=== PATIENT | female | born 1950 | race Caucasian/White ===

== ENCOUNTER 2017-01-12 10:57 | Emergency (ER) | payer MEDICARE, BC ==
[2017-01-12 11:12] VITALS: BP 132/82
--- NOTE | 2017-01-12 12:48 | UC ---
Complaint Female HPI - HPI Summary HPI Summary: burning with urination , nausea for 1 day no fever or back pain - History Of Current Complaint Chief Complaint: UCGU Stated Complaint: UTI COMPLAINT Time Seen by Provider: 01/12/17 12:42 Hx Obtained From: Patient ?: No Onset/Duration: Sudden Onset, Lasting Days - 1 Timing: Constant Severity Initially: Moderate Severity Currently: Moderate Character: Burning Aggravating Factor(s): Urination Alleviating Factor(s): Nothing Associated Signs And Symptoms: Positive: Nausea - Allergies/Home Medications Allergies/Adverse Reactions: Allergies Allergy/AdvReac Type Severity Reaction Status Date / Time PAIN MEDS Allergy Anaphylatic Uncoded 12/06/15 07:43 Shock Home Medications: Home Medications Aredred 1 tab DAILY 01/12/17 [History] PMH/Surg Hx/FS Hx/Imm Hx Previously Healthy: Yes - Surgical History Surgical History: Yes Surgery Procedure, Year, and Place: 1973 BILATERAL TUBAL LIGATION, [facility] [place]. 2009 BACK SURGERY, [facility] [place]. 2012 DILATION AND CURETTAGE, [facility] - Family History Family History: no reported cardiovascular issues in family lineage - Social History Occupation: Retired Lives: With Family Alcohol Use: Rare Substance Use Type: None Smoking Status (MU): Never Smoked Tobacco Household Exposure Type: Cigarettes Review of Systems Constitutional: Negative Skin: Negative Eyes: Negative ENT: Negative Respiratory: Negative Cardiovascular: Negative Gastrointestinal: Negative Genitourinary: Dysuria, Frequency Motor: Negative Neurovascular: Negative Musculoskeletal: Negative Neurological: Negative Psychological: Negative All Other Systems Reviewed And Are Negative: Yes Physical Exam Triage Information Reviewed: Yes Appearance: Well-Appearing, No Pain Distress, Well-Nourished Vital Signs: Initial Vital Signs Temp 98.1 F 01/12/17 11:10 Pulse 85 01/12/17 11:10 Resp 18 01/12/17 11:10 BP 132/82 01/12/17 11:10 Pulse Ox 96 01/12/17 11:10 Vital Signs Reviewed: Yes Eye Exam: Normal Eyes: Positive: Conjunctiva Clear ENT Exam: Normal ENT: Positive: Normal ENT inspection, Hearing grossly normal. Negative: Nasal congestion, Nasal drainage, Trismus, Muffled/hoarse voice Dental Exam: Normal Neck exam: Normal Neck: Positive: Supple, Nontender Respiratory Exam: Normal Respiratory: Positive: Chest non-tender, Lungs clear, Normal breath sounds, No respiratory distress, No accessory muscle use Cardiovascular Exam: Normal Abdominal Exam: Normal Abdomen Description: Positive: Nontender, No Organomegaly, Soft. Negative: CVA Tenderness (R), CVA Tenderness (L) Bowel Sounds: Positive: Present Musculoskeletal Exam: Normal Musculoskeletal: Positive: Strength Intact, ROM Intact, No Edema Neurological Exam: Normal Neurological: Positive: Alert, Muscle Tone Normal Psychological Exam: Normal Skin Exam: Normal Complaint Female Dx - Course Course Of Treatment: culture urine, keflex, increase fluids, follow with pcp - Differential Dx/Diagnosis Differential Diagnosis/HQI/PQRI: Renal Colic, Sexually Transmitted Disease, Urinary Tract Infection Provider Diagnoses: UTI Discharge - Discharge Plan Condition: Stable Disposition: HOME Prescriptions: Cephalexin CAP* [Keflex CAP*] 500 mg PO BID #20 cap Patient Education Materials: Urinary Tract Infection in Women (ED) Referrals: Suresh Velazquez MD [Primary Care Provider] - 2 Weeks
--- NOTE | 2017-01-13 15:44 | UC ---
Progress - Progress Note Progress Note: notify pt no UTTI stop antibiotic see primary if still symptomatic
== END 2017-01-12 12:59 | disposition home or self-care (01) ==
LOC: UCEAST 10:57
DX: R30.0 Dysuria (principal); R11.2 Nausea with vomiting, unspecified; Z77.22 Contact with and (suspected) exposure to environmental tobacco smoke (acute) (chronic)
CPT/HCPCS: 81003; 87086; 99212; G0463

== ENCOUNTER 2017-06-18 08:50 | Emergency (ER) | payer MEDICARE, BC ==
[2017-06-18 09:07] VITALS: BP 149/70
--- NOTE | 2017-06-18 10:18 | UC ---
Throat Pain/Nasal Anil HPI - HPI Summary HPI Summary: 66 y/o female presents to the urgent care c/o sinus congestion,pain, BOLDEN Sore throat since 06/10/2017. Pt reports her symptoms started with a common cold. BOLDEN is 5/10 and she is now with a yellowish nasal discharge and a dry cough too. Pt denies fever, SOB, chest pain, abdominal pain, N/V/D - History of Current Complaint Chief Complaint: UCGeneralIllness Stated Complaint: SINUS ISSUE Time Seen by Provider: 06/18/17 10:04 Hx Obtained From: Patient ?: No Onset/Duration: Gradual Onset, Lasting Weeks - 1 week, Still Present, Worse Since - 2 days Severity: Moderate Pain Intensity: 5 Pain Scale Used: 0-10 Numeric Cough: Sputum Appears - yellowish at times Associated Signs & Symptoms: Positive: Sinus Discomfort, Nasal Discharge - Epiglottits Risk Factors Epiglottis Risk Factors: Negative - Allergies/Home Medications Allergies/Adverse Reactions: Allergies Allergy/AdvReac Type Severity Reaction Status Date / Time PAIN MEDS Allergy Anaphylatic Uncoded 06/18/17 09:07 Shock PMH/Surg Hx/FS Hx/Imm Hx Previously Healthy: Yes - Pt denies PMHX - Surgical History Surgical History: Yes Surgery Procedure, Year, and Place: 1973 BILATERAL TUBAL LIGATION, [facility] – [place]. 2009 LSP BACK SURGERY, [facility] [place]. 2012 DILATION AND CURETTAGE FOR PESSARY IMPLANT, [facility]. LEFT KNEE MENISCUS REPAIR - Family History Known Family History: Positive: Diabetes Family History: no reported cardiovascular issues in family lineage - Social History Occupation: Retired Lives: With Family Alcohol Use: Rare Substance Use Type: None Smoking Status (MU): Never Smoked Tobacco Household Exposure Type: Cigarettes - Immunization History Most Recent Influenza Vaccination: 03/2017 Review of Systems Constitutional: Negative Skin: Negative Eyes: Negative ENT: Sore Throat, Nasal Discharge, Sinus Congestion, Sinus Pain/Tenderness Respiratory: Cough - productive with yellowish phlegm Cardiovascular: Negative Gastrointestinal: Negative Genitourinary: Negative Motor: Negative Neurovascular: Negative Musculoskeletal: Negative Neurological: Negative Psychological: Negative Is Patient Immunocompromised?: No All Other Systems Reviewed And Are Negative: Yes Physical Exam Triage Information Reviewed: Yes Vital Signs: Initial Vital Signs Temp 98.5 F 06/18/17 09:01 Pulse 81 06/18/17 09:01 Resp 18 06/18/17 09:01 BP 149/70 06/18/17 09:01 Pulse Ox 97 06/18/17 09:01 - Additional Comments Vitals: reviewed General: Well developed, well-nourished patient with NAD. Head and face: Normocephalic and atraumatic, Positive tenderness over the frontal and maxillary sinuses.. Eyes: PERRLA, EOMI x 2. Normal conjunctiva. No eye discharge. ENT: Ears and TM with normal limits. Nose: with moderate yellowish discharge and edematous and erythematous mucosa. Pharynx with erythema, no exudate. Neck: Supple, no JVD, no carotid bruits and no lymphadenopathy. Lungs: clear, no rales, no rhonchi, no wheezes. CVS: RRR, S1 and S2 present no murmurs or gallops appreciated. Abdomen: soft nontender with positive bowel sounds. Extremities: no edema noted. Neuro: WNL. Skin: warm and dry Throat Pain/Nasal Course/Dx - Course Course Of Treatment: 66 y/o female presents to the urgent care c/o sinus congestion,pain, BOLDEN Sore throat since 06/10/2017. Pt reports her symptoms started with a common cold. Bolden is 5/10 she is now with a yellowish nasal discharge and a dry cough too. Pt denies fever, SOB, chest pain, abdominal pain , N/V/D. Hx obtained. Pt with sinusitis on examination. Pt with 1 week of symptoms getting worse. Pt Rx Amoxicillin PO and flonase nasal spray. Discharge instructions explained to Pt. Pt' s BP elevated advised to decrease salt in diet. monitor BP and f/u with PCP. Advised to Return to the clinic or PCP if symptoms do not improve.Pt understood and agreed with plan of care. - Differential Dx/Diagnosis Differential Diagnosis/HQI/PQRI: Influenza, Laryngitis, Otitis Media, Pharyngitis, Sinusitis, Tonsillitis, URI Provider Diagnoses: 1- Acute bacterail sinusitis. 2-Uncontrolled HTN Discharge - Discharge Plan Condition: Stable Disposition: HOME Prescriptions: Amoxicillin/Clavulanate TAB* [Augmentin TAB 875*] 875 mg PO BID #20 tab Fluticasone NASAL SPRAY 50MCG* [Flonase NASAL SPRAY 50MCG*] 2 spray BOTH NARES DAILY #1 btl Patient Education Materials: Sinusitis (ED), Low Sodium Diet (ED) Referrals: Suresh Velazquez MD [Primary Care Provider] - If Needed Additional Instructions: 1- Please increase fluid intake and rest. take full course of antibiotic to avoid resistance 2-Use Flonase as directed to help drain fluid. Also buy saline drops to clear sinuses 3-Take Sudafed or Claritin PO to alleviates sinus congestion 4-Return to the clinic or PCP if symptoms do not improve for further management and treatment 5-Your BP is elevated today. please decrease salt in your diet, monitor BP and if it continues to be elevated please f/u with your PCP for further management
== END 2017-06-18 10:25 | disposition home or self-care (01) ==
LOC: UCEAST 08:50
DX: J01.90 Acute sinusitis, unspecified (principal); I10 Essential (primary) hypertension; Z77.22 Contact with and (suspected) exposure to environmental tobacco smoke (acute) (chronic)
CPT/HCPCS: 99212; G0463

== ENCOUNTER 2018-04-13 07:14 | Emergency (ER) | payer MEDICARE, BC ==
[2018-04-13 07:32] VITALS: BP 159/90
--- NOTE | 2018-04-13 07:49 | UC ---
Respiratory Complaint HPI - HPI Summary HPI Summary: 1 WEEK OF COUGH, CHEST CONGESTION, SORE THROAT, EAR PAIN, FATIGUE AND OVERALL MALAISE. DENIES FEVER, NAUSEA/VOMITING. ALSO COMPLAINS OF ABOUT 2 DAYS OF URINARY FREQUENCY, URGENCY AND DYSURIA. AGAIN NO FEVER. - History of Current Complaint Stated Complaint: COUGH EAR PAIN ACHES ALL OVER Time Seen by Provider: 04/13/18 07:23 Hx Obtained From: Patient Onset/Duration: Gradual Onset, Lasting Days, Still Present Timing: Constant Severity Initially: Moderate Severity Currently: Moderate Pain Intensity: 2 Pain Scale Used: 0-10 Numeric Character: Cough: Nonproductive Aggravating Factors: Nothing Alleviating Factors: Nothing Associated Signs And Symptoms: Positive: Dyspnea, URI, Nasal Congestion. Negative: Fever - Allergies/Home Medications Allergies/Adverse Reactions: Allergies Allergy/AdvReac Type Severity Reaction Status Date / Time PAIN MEDS Allergy Anaphylatic Uncoded 04/13/18 07:32 Shock PMH/Surg Hx/FS Hx/Imm Hx - Additional Past Medical History Additional PMH: CHRONIC BACK PAIN - Surgical History Surgical History: Yes Surgery Procedure, Year, and Place: 1973 BILATERAL TUBAL LIGATION, [facility] [place]. 2009 LSP BACK SURGERY, [facility] [place]. 2012 DILATION AND CURETTAGE FOR PESSARY IMPLANT, [facility]. LEFT KNEE MENISCUS REPAIR - Family History Known Family History: Positive: Hypertension, Diabetes, Other - Negative FMHx of breast cancer - Social History Alcohol Use: Rare Substance Use Type: None Smoking Status (MU): Never Smoked Tobacco Household Exposure Type: Cigarettes - Immunization History Most Recent Influenza Vaccination: 03/2017 Review of Systems Constitutional: Fatigue ENT: Sore Throat, Ear Ache, Nasal Discharge Respiratory: Shortness Of Breath, Cough Cardiovascular: Negative Gastrointestinal: Negative Genitourinary: Dysuria, Frequency, Urgency All Other Systems Reviewed And Are Negative: Yes Physical Exam Triage Information Reviewed: Yes Appearance: No Pain Distress, Well-Nourished, Ill-Appearing - APPEARS FATIGUED Vital Signs: Initial Vital Signs Temp 95.7 F 04/13/18 07:29 Pulse 79 04/13/18 07:29 Resp 20 04/13/18 07:29 BP 159/90 04/13/18 07:29 Pulse Ox 97 04/13/18 07:29 Laboratory Tests 04/13/18 07:35 POC Urine Color Yellow POC Urine Clarity Clear POC Urine pH 6.5 POC Ur Specif [place] <= 1.005 L POC Urine Protein Negative POC Ur Glucose (UA) Negative POC Urine Ketones Negative POC Urine Blood Trace-intact A POC Urine Nitrite Negative POC Urine Bilirubin Negative POC Urine Urobilinogen 0.2 POC U Leukocyte Esteras 1+ A Vital Signs Reviewed: Yes Eyes: Positive: Conjunctiva Clear ENT: Positive: Hearing grossly normal, Pharynx normal, TMs normal Neck: Positive: Supple, Nontender, No Lymphadenopathy Respiratory Exam: Normal Cardiovascular Exam: Normal Abdomen Description: Positive: Nontender, Soft. Negative: CVA Tenderness (R), CVA Tenderness (L), Distended, Guarding Musculoskeletal: Positive: No Edema Neurological: Positive: Alert Psychological: Positive: Age Appropriate Behavior Skin: Negative: rashes UC Diagnostic Evaluation - Laboratory O2 Sat by Pulse Oximetry: 97 Respiratory Course/Dx - Differential Dx/Diagnosis Provider Diagnoses: 1. ACUTE BRONCHITIS. 2. UTI Discharge - Sign-Out/Discharge Documenting (check all that apply): Patient Departure All imaging exams completed and their final reports reviewed: No Studies - Discharge Plan Condition: Stable Disposition: HOME Prescriptions: Cephalexin CAP* [Keflex 500 CAP*] 1,000 mg PO BID #28 cap Patient Education Materials: Urinary Tract Infection in Women (ED), Acute Bronchitis (ED) Referrals: Suresh Velazquez MD [Primary Care Provider] - If Needed Additional Instructions: YOUR RESPIRATORY SYMPTOMS MAY BE VIRALLY MEDIATED BUT GIVEN THE LENGTH OF TIME YOU HAVE BEEN ILL WE WILL COVER YOU WITH ANTIBIOTICS. IF YOU START THE MEDICINE BE SURE TO TAKE IT FOR THE FULL COURSE. REST, HYDRATE, OTC MEDS NEEDED. SEEK FOLLOW-UP WITH YOUR PCP IF YOU ARE NOT IMPROVING OVER THE NEXT 1-2 WEEKS. THE ANTIBIOTIC SHOULD COVER BOTH YOUR RESPIRATORY SYMPTOMS AND YOUR URINARY SYMPTOMS. WE WILL SEND YOUR URINE FOR CULTURE AND CALL YOU IF YOUR MEDICATION NEEDS TO BE CHANGED. - Billing Disposition and Condition Condition: STABLE Disposition: Home
--- NOTE | 2018-04-15 19:55 | UC ---
- Progress Note Progress Note: + Ecoli Pt on keflex no change + sensitive Ljj 04/15/18 Discharge - Sign-Out/Discharge Documenting (check all that apply): Post-Discharge Follow Up All imaging exams completed and their final reports reviewed: No Studies - Discharge Plan Condition: Stable Disposition: HOME Prescriptions: Cephalexin CAP* [Keflex 500 CAP*] 1,000 mg PO BID #28 cap Patient Education Materials: Urinary Tract Infection in Women (ED), Acute Bronchitis (ED) Referrals: Suresh Velazquez MD [Primary Care Provider] - If Needed Additional Instructions: YOUR RESPIRATORY SYMPTOMS MAY BE VIRALLY MEDIATED BUT GIVEN THE LENGTH OF TIME YOU HAVE BEEN ILL WE WILL COVER YOU WITH ANTIBIOTICS. IF YOU START THE MEDICINE BE SURE TO TAKE IT FOR THE FULL COURSE. REST, HYDRATE, OTC MEDS NEEDED. SEEK FOLLOW-UP WITH YOUR PCP IF YOU ARE NOT IMPROVING OVER THE NEXT 1-2 WEEKS. THE ANTIBIOTIC SHOULD COVER BOTH YOUR RESPIRATORY SYMPTOMS AND YOUR URINARY SYMPTOMS. WE WILL SEND YOUR URINE FOR CULTURE AND CALL YOU IF YOUR MEDICATION NEEDS TO BE CHANGED. - Billing Disposition and Condition Condition: STABLE Disposition: Home
== END 2018-04-13 07:56 | disposition home or self-care (01) ==
LOC: UCEAST 07:14
DX: J20.9 Acute bronchitis, unspecified (principal); N39.0 Urinary tract infection, site not specified; Z88.5 Allergy status to narcotic agent
CPT/HCPCS: 81003; 87077; 87086; 87186; 99212; G0463

== ENCOUNTER 2018-09-13 13:57 | Inpatient (IN) | payer MEDICARE, BC ==
[2018-09-13] MEDS ORDERED: Ondansetron INJ* 2 MG/ML VIAL IV ONE (15:02)
[2018-09-13] MEDS ORDERED: NS 0.9% 1000 ML** 1,000 ML IV ONE ×2 (15:02→17:11)
[2018-09-13] MEDS ORDERED: Aspirin 81 mg CHEW TAB* 81 MG TAB.CHEW PO ONE (15:02)
[2018-09-13 15:55] LABS: ABS Basophils 0.1 10^3/ul (0-0.2); ABS Eosinophils 0.1 10^3/ul (0-0.6); ABS Lymphocytes 1.5 10^3/ul (1.0-4.8); ABS Monocytes 0.8 10^3/ul (0-0.8); ABS Neutrophils 6.2 10^3/ul (1.5-7.7); ABS Nucleated RBC 0 10^3/ul; Eosinophil % 0.7 %; Hematocrit 37 % (35-47); Hemoglobin 12.4 g/dl (12.0-16.0); Lymphocyte % 17.1 %; Mean Corpuscular HGB Conc 34 g/dl (31-36); Mean Corpuscular Hemoglobin 32 pg (27-31); Mean Corpuscular Volume 96 fL (80-97); Mean Platelet Volume 6.9 fL (7.4-10.4); Nucleated Red Blood Cells % 0; Platelet Count 229 10^3/ul (150-450); Red Blood Count 3.87 10^6/ul (4.00-5.40); Red Cell Distribution Width 13 % (10.5-15); White Blood Count 8.7 10^3/ul (3.5-10.8)
[2018-09-13 16:07] LABS: Activated Partial Thrombo Time 29.5 seconds (26.0-36.3)
[2018-09-13 16:42] LABS: Albumin 3.9 g/dL (3.2-5.2); Albumin/Globulin Ratio 1.7 (1-3); BUN/Creatinine Ratio 24.2 (8-20); Calcium 8.8 mg/dL (8.6-10.3); EGFR African American 107.8 (>60); EGFR Non-African American 89.1 (>60); Globulin 2.3 g/dL (2-4); Magnesium 2.1 mg/dL (1.9-2.7); Potassium 3.8 mmol/L (3.5-5.0); Total Bilirubin 0.3 mg/dL (0.2-1.0); Total Protein 6.2 g/dL (6.4-8.9)
[2018-09-13] MEDS ORDERED: Iohexol 300* (CONTRAST) 10 ML SDV IV ONE (17:35)
[2018-09-13] MEDS ORDERED: Ondansetron INJ* 2 MG/ML VIAL IV PRN (18:51)
[2018-09-13] MEDS ORDERED: NS 0.9% 1000 ML** 1,000 ML IV SCH (19:15)
--- NOTE | 2018-09-13 22:39 | HP ---
CC: Dr. Velazquez * ADMISSION HISTORY AND PHYSICAL: DATE OF ADMISSION: 09/13/18 PRIMARY CARE PROVIDER: Dr. Velazquez. MY ATTENDING WHILE IN THE HOSPITAL: Dr. Vania Worley.* (DICTATED BY OLVIN MCMANUS) CHIEF COMPLAINT: Abdominal pain x6 hours. HISTORY OF PRESENT ILLNESS: Ms. Grimm is a 68-year-old female with no significant past medical history, who presents to the emergency department after this morning she fell on the ice, took ibuprofen 400 mg, and then 10 minutes later, began to have sudden onset of severe epigastric abdominal pain radiating to her chest and down the center of her abdomen, no radiation to her back, with severe nausea without vomiting and 1 syncopal episode. The patient has never had any episodes like this before. The patient denies any recent illness. The patient takes no other medications. The patient had chills associated with this, but denies any fevers. The patient has been in her normal state of health except for the aforementioned fall. The patient states that the pain since then has subsided and then come back in paroxysms, which can be severe and associated with nausea. The patient states that the aspirin she received in the emergency department helped and that the Zofran she received helped significantly. The patient does not drink alcohol. The patient has no new meds. The patient never had any problems with her gallbladder before. The patient states that her pain is currently a 3 to 4. The patient denies chest pain, shortness of breath, dysuria, abdominal pain, diarrhea, or other symptoms. The patient's lipase was over 5000. Due to concern for pancreatitis, we are asked to evaluate the patient for admission to the hospital. PAST MEDICAL HISTORY: Macular degeneration. PAST SURGICAL HISTORY: Back surgery. MEDICATIONS: Ibuprofen as needed. ALLERGIES: OPIATE PAIN MEDICATIONS. FAMILY HISTORY: The patient's mother of complications of diabetes. The patient's father is still alive and has dementia. The patient has a sister with hypertension and sleep apnea. The patient has a brother with diabetes and a brother, who of pancreatic cancer. SOCIAL HISTORY: The patient denies ever smoking, but has exposure to second- hand smoke. The patient drinks approximately 2 beers a year. The patient denies illicit drug use. The patient works as a book or script editor. She is and has 2 children. Surrogate decision maker will be her , Leo Grimm , primarily. REVIEW OF SYSTEMS: A 14-point review of systems was reviewed and is negative other than above in the HPI. PHYSICAL EXAMINATION GENERAL: The patient is a 68-year-old female, who appears stated age and is sitting comfortably in bed, in no acute distress. VITAL SIGNS: At the time of evaluation, temperature 98.9, pulse rate 58, respiratory rate 21, oxygen saturation 97% on room air, blood pressure 135/82. HEENT: Head: Normocephalic, atraumatic. Sclerae anicteric. No conjunctival injection. Nasal mucosa moist. Oral mucosa moist. No pharyngeal erythema, discharge, or exudate. NECK: Supple, nontender. No lymphadenopathy. No carotid bruits auscultated. No JVD. RESPIRATORY: Breath sounds bilaterally. No wheezes, rales, or rhonchi. Good air exchange bilaterally. CARDIAC: Regular rate and rhythm. No clicks, murmurs, gallops, or rubs. Pulse 2+ in dorsalis pedis, posterior tibial, and radial areas. ABDOMEN: Soft, tender to palpation in the epigastric area without rebound or guarding. No hepatosplenomegaly. Negative Townsend's sign. No abdominal bruits auscultated. GENITOURINARY: No suprapubic or CVA tenderness. NEUROLOGIC: Cranial nerves II through XII intact. No focal deficits. Alert and oriented x3. PSYCHIATRIC: Pleasant and cooperative. SKIN: Clean, dry, intact. No rash. DIAGNOSTIC STUDIES/LAB DATA: White blood cell count 8.7, hemoglobin 12.4, platelet count 229. INR 1.0, aPTT 29.5. Sodium 142, potassium 3.8, chloride 110, carbon dioxide 27, anion gap 5, BUN 16, creatinine 0.66, glucose 92, lactic acid 0.6, calcium 8.8, magnesium 2.1. Bilirubin 0.3, AST 17, ALT 10, alkaline phosphatase 69. Troponin-I 0.00 x2. BNP 21. Protein 6.2. Lipase 2291. Studies: Abdomen and pelvis CT read as cholelithiasis at the gallbladder fundus versus mass lesion in this region. There is a mild gallbladder wall thickening, acute gallbladder pathology could be better assessed with right upper quadrant ultrasound or nuclear medicine hepatobiliary scan, no acute CT pathology. Chest x-ray read as no active cardiopulmonary disease. Electrocardiogram shows normal sinus rhythm, normal axis, right bundle branch block pattern, no ST-segment elevation or depression. No blocks or hypertrophy. ASSESSMENT AND PLAN: Ms. Grimm is a 68-year-old female with no significant past medical history, who presents to the emergency department with sudden- onset severe abdominal pain and was found to have an elevated lipase and possible cholelithiasis with signs of acute cholecystitis. The patient will be admitted to the hospital for gallbladder pancreatitis, surgical consult possible , and conservative measures for her pancreatitis. Pancreatitis, possible cholecystitis. The patient has a sign of gallbladder pathology. Right upper quadrant ultrasound is pending. This is the most likely cause for the patient's pancreatitis. Other causes could be rare drug effect from NSAIDs; however, given patient's age, gender, and presentation, this is unlikely to be the case. The patient is at this time very hungry and has minor abdominal pain. The patient will be given a clear liquid diet; Tylenol for pain control, she cannot tolerate opiate pain medications; fluids at 75 mL an hour. The patient is normotensive, non-tachycardic. The patient will be seen in consultation by Dr. Corona Gonzalez of Surgery, who this case has been discussed with and will assess the patient for the time being of possible cholecystectomy. DVT prophylaxis. The patient will have heparin subcu. FEN. The patient will have a clear liquid diet and fluids as above. Disposition. The patient admitted to observation in the hospital. TIME SPENT: Approximately 60 minutes spent on the admission of this patient, 30 of which was spent [id number] with the patient obtaining history and physical and discussing treatment plan. Plan was discussed with my attending, Dr. Vania Worley; she is in agreement. OLVIN MCMANUS [id number]/CPS #: [id number] [place]
[2018-09-13] MEDS: Acetaminophen TAB* 325 MG PO PRN (23:41)
--- NOTE | 2018-09-14 02:59 | ED ---
Abdominal Pain/Female - HPI Summary HPI Summary: Patient complains of epigastric pain, left side chest pain, SOB, nausea, diaphoresis, diarrhea 1 starting today at 4:15. Also complains of fall this a.m. with no subsequent injuries. Denies fever, cough, sore throat, V/D, change in urine, vaginal discharge/bleeding/pain. Denies recent CP or SOB with exertion. CP currently rated 1/10, abdominal pain graded 4/10. Medical history is none. Surgical abdominal surgical history is none. Denies smoking, EtOH and recreational drug use. - History of Current Complaint Chief Complaint: EDChestPainROMI Stated Complaint: ABD PAIN PER EMS Time Seen by Provider: 09/13/18 14:43 Hx Obtained From: Patient Onset/Duration: Sudden Onset Timing: Constant Severity Initially: Moderate Severity Currently: Moderate Pain Intensity: 2 Pain Scale Used: 0-10 Numeric Location: Discrete At: RUQ, Epigastric Radiates: Yes Radiates to: Chest Character: Sharp, Burning Aggravating Factor(s): Food Alleviating Factor(s): Nothing Associated Signs and Symptoms: Positive: Diaphoresis, Chest Pain, Decreased Appetite, Nausea Allergies/Adverse Reactions: Allergies Allergy/AdvReac Type Severity Reaction Status Date / Time PAIN MEDS Allergy Anaphylatic Uncoded 04/13/18 07:32 Shock Home Medications: Home Medications Multivitamins/Minerals TAB* [Theragran/minerals TAB*] 1 tab PO DAILY 09/13/18 [ History Confirmed 09/13/18] PMH/Surg Hx/FS Hx/Imm Hx Endocrine/Hematology History: Denies: Hx Diabetes, Hx Thyroid Disease Cardiovascular History: Denies: Hx Hypertension, Hx Pacemaker/ICD Respiratory History: Reports: Hx Pneumonia Denies: Hx Asthma, Hx Chronic Obstructive Pulmonary Disease (COPD) GI History: Denies: Hx Ulcer History: Denies: Hx Renal Disease Musculoskeletal History: Reports: Hx Arthritis - BACK, AND BILATERAL HIPS Denies: Hx Osteoporosis Sensory History: Reports: Hx Contacts or Glasses, Hx Macular Degeneration Denies: Hx Hearing Aid Opthamlomology History: Reports: Hx Contacts or Glasses, Hx Macular Degeneration Neurological History: Reports: Hx Headaches - several last week Denies: Hx Migraine Psychiatric History: Denies: Hx Panic Disorder - Cancer History Hx Chemotherapy: No Hx Radiation Therapy: No - Surgical History Surgery Procedure, Year, and Place: 1973 BILATERAL TUBAL LIGATION, [facility]. 2009 [place] [facility] [place]IL[place] AND CURETTAGE FOR PESSARY IMPLANT, [facility]. LEFT KNEE MENISCUS REPAIR Hx Anesthesia Reactions: No Infectious Disease History: No Infectious Disease History: Denies: Hx Clostridium Difficile, Hx Hepatitis, Hx Human Immunodeficiency Virus (HIV), Hx of Known/Suspected MRSA, Hx Shingles, Hx Tuberculosis, Hx Known/ Suspected VRE, Hx Known/Suspected VRSA, History Other Infectious Disease, Traveled Outside the [place] in Last 30 Days - Family History Known Family History: Positive: Hypertension, Diabetes, Other - Negative FMHx of breast cancer - Social History Alcohol Use: Rare Hx Substance Use: No Substance Use Type: Reports: None Hx Tobacco Use: No Smoking Status (MU): Never Smoked Tobacco Review of Systems Constitutional: Negative Eyes: Negative ENT: Negative Positive: Chest Pain Positive: Shortness Of Breath Positive: Abdominal Pain, Nausea Genitourinary: Negative Musculoskeletal: Negative Skin: Negative Neurological: Negative Psychological: Normal All Other Systems Reviewed And Are Negative: Yes Physical Exam - Summary Physical Exam Summary: Pain to palpation right upper quadrant and epigastrium. Abdominal exam otherwise unremarkable. Lung sounds clear to auscultation bilaterally. RRR. No CVA tenderness bilaterally. No peripheral edema bilaterally. Triage Information Reviewed: Yes Vital Signs On Initial Exam: Initial Vitals Temp Pulse Resp BP Pulse Ox 98.9 F 84 19 122/76 95 09/13/18 14:09 09/13/18 14:09 09/13/18 14:09 09/13/18 14:09 09/13/18 14:09 Vital Signs Reviewed: Yes Appearance: Positive: Well-Appearing Skin: Positive: Warm Head/Face: Positive: Normal Head/Face Inspection Eyes: Positive: Normal Neck: Positive: Supple Respiratory/Lung Sounds: Positive: Clear to Auscultation Cardiovascular: Positive: Normal Abdomen Description: Positive: Other: Musculoskeletal: Positive: Normal Neurological: Positive: Normal Psychiatric: Positive: Normal AVPU Assessment: Alert - Gilbert Coma Scale Best Eye Response: 4 - Spontaneous Best Motor Response: 6 - Obeys Commands Best Verbal Response: 5 - Oriented Coma Scale Total: 15 Diagnostics - Vital Signs Vital Signs Temp Pulse Resp BP Pulse Ox 09/13/18 18:37 68 21 135/82 97 09/13/18 18:07 69 20 151/80 95 09/13/18 18:06 73 13 97 09/13/18 17:07 68 22 151/83 96 09/13/18 17:00 73 18 95 09/13/18 16:37 78 15 132/80 93 09/13/18 16:09 75 14 157/82 96 09/13/18 16:00 80 16 96 09/13/18 15:53 71 21 130/82 96 09/13/18 15:07 81 23 144/81 98 09/13/18 15:00 87 99 09/13/18 14:37 87 140/88 98 09/13/18 14:35 80 96 09/13/18 14:09 98.9 F 84 19 122/76 95 - Laboratory Lab Results: Lab Results 09/13/18 09/13/18 09/13/18 Range/Units 15:32 15:32 15:32 WBC 8.7 (3.5-10.8) 10^3/ul RBC 3.87 L (4.00-5.40) 10^6/ul Hgb 12.4 (12.0-16.0) g/dl Hct 37 (35-47) % MCV 96 (80-97) fL MCH 32 H (27-31) pg MCHC 34 (31-36) g/dl RDW 13 (10.5-15) % Plt Count 229 (150-450) 10^3/ul MPV 6.9 L (7.4-10.4) fL Neut % (Auto) 72.1 % Lymph % (Auto) 17.1 % [place] % (Auto) 9.1 % Eos % (Auto) 0.7 % Baso % (Auto) 1.0 % Absolute Neuts (auto) 6.2 (1.5-7.7) 10^3/ul Absolute Lymphs (auto) 1.5 (1.0-4.8) 10^3/ul Absolute Monos (auto) 0.8 (0-0.8) 10^3/ul Absolute Eos (auto) 0.1 (0-0.6) 10^3/ul Absolute Basos (auto) 0.1 (0-0.2) 10^3/ul Absolute Nucleated RBC 0 10^3/ul Nucleated RBC % 0 INR (Anticoag Therapy) 1.00 (0.77-1.02) APTT 29.5 (26.0-36.3) seconds Sodium 142 (135-145) mmol/L Potassium 3.8 (3.5-5.0) mmol/L Chloride 110 (101-111) mmol/L Carbon Dioxide 27 (22-32) mmol/L Anion Gap 5 (2-11) mmol/L BUN 16 (6-24) mg/dL Creatinine 0.66 (0.51-0.95) mg/dL Est GFR ( Amer) 107.8 (>60) Est GFR (Non-Af Amer) 89.1 (>60) BUN/Creatinine Ratio 24.2 H (8-20) Glucose 92 (70-100) mg/dL Lactic Acid (0.5-2.0) mmol/L Calcium 8.8 (8.6-10.3) mg/dL Magnesium 2.1 (1.9-2.7) mg/dL Total Bilirubin 0.30 (0.2-1.0) mg/dL AST 17 (13-39) U/L ALT 10 (7-52) U/L Alkaline Phosphatase 59 (34-104) U/L Troponin I 0.00 (<0.04) ng/mL B-Natriuretic Peptide (<=100) pg/mL Total Protein 6.2 L (6.4-8.9) g/dL Albumin 3.9 (3.2-5.2) g/dL Globulin 2.3 (2-4) g/dL Albumin/Globulin Ratio 1.7 (1-3) Lipase (11.0-82.0) U/L 09/13/18 09/13/18 09/13/18 Range/Units 15:32 15:32 15:32 WBC (3.5-10.8) 10^3/ul RBC (4.00-5.40) 10^6/ul Hgb (12.0-16.0) g/dl Hct (35-47) % MCV (80-97) fL MCH (27-31) pg MCHC (31-36) g/dl RDW (10.5-15) % Plt Count (150-450) 10^3/ul MPV (7.4-10.4) fL Neut % (Auto) % Lymph % (Auto) % [place] % (Auto) % Eos % (Auto) % Baso % (Auto) % Absolute Neuts (auto) (1.5-7.7) 10^3/ul Absolute Lymphs (auto) (1.0-4.8) 10^3/ul Absolute Monos (auto) (0-0.8) 10^3/ul Absolute Eos (auto) (0-0.6) 10^3/ul Absolute Basos (auto) (0-0.2) 10^3/ul Absolute Nucleated RBC 10^3/ul Nucleated RBC % INR (Anticoag Therapy) (0.77-1.02) APTT (26.0-36.3) seconds Sodium (135-145) mmol/L Potassium (3.5-5.0) mmol/L Chloride (101-111) mmol/L Carbon Dioxide (22-32) mmol/L Anion Gap (2-11) mmol/L BUN (6-24) mg/dL Creatinine (0.51-0.95) mg/dL Est GFR ( Amer) (>60) Est GFR (Non-Af Amer) (>60) BUN/Creatinine Ratio (8-20) Glucose (70-100) mg/dL Lactic Acid 0.6 (0.5-2.0) mmol/L Calcium (8.6-10.3) mg/dL Magnesium (1.9-2.7) mg/dL Total Bilirubin (0.2-1.0) mg/dL AST (13-39) U/L ALT (7-52) U/L Alkaline Phosphatase (34-104) U/L Troponin I (<0.04) ng/mL B-Natriuretic Peptide 21 (<=100) pg/mL Total Protein (6.4-8.9) g/dL Albumin (3.2-5.2) g/dL Globulin (2-4) g/dL Albumin/Globulin Ratio (1-3) Lipase 5291 H (11.0-82.0) U/L 09/13/18 Range/Units 17:39 WBC (3.5-10.8) 10^3/ul RBC (4.00-5.40) 10^6/ul Hgb (12.0-16.0) g/dl Hct (35-47) % MCV (80-97) fL MCH (27-31) pg MCHC (31-36) g/dl RDW (10.5-15) % Plt Count (150-450) 10^3/ul MPV (7.4-10.4) fL Neut % (Auto) % Lymph % (Auto) % [place] % (Auto) % Eos % (Auto) % Baso % (Auto) % Absolute Neuts (auto) (1.5-7.7) 10^3/ul Absolute Lymphs (auto) (1.0-4.8) 10^3/ul Absolute Monos (auto) (0-0.8) 10^3/ul Absolute Eos (auto) (0-0.6) 10^3/ul Absolute Basos (auto) (0-0.2) 10^3/ul Absolute Nucleated RBC 10^3/ul Nucleated RBC % INR (Anticoag Therapy) (0.77-1.02) APTT (26.0-36.3) seconds Sodium (135-145) mmol/L Potassium (3.5-5.0) mmol/L Chloride (101-111) mmol/L Carbon Dioxide (22-32) mmol/L Anion Gap (2-11) mmol/L BUN (6-24) mg/dL Creatinine (0.51-0.95) mg/dL Est GFR ( Amer) (>60) Est GFR (Non-Af Amer) (>60) BUN/Creatinine Ratio (8-20) Glucose (70-100) mg/dL Lactic Acid (0.5-2.0) mmol/L Calcium (8.6-10.3) mg/dL Magnesium (1.9-2.7) mg/dL Total Bilirubin (0.2-1.0) mg/dL AST (13-39) U/L ALT (7-52) U/L Alkaline Phosphatase (34-104) U/L Troponin I 0.00 (<0.04) ng/mL B-Natriuretic Peptide (<=100) pg/mL Total Protein (6.4-8.9) g/dL Albumin (3.2-5.2) g/dL Globulin (2-4) g/dL Albumin/Globulin Ratio (1-3) Lipase (11.0-82.0) U/L Result Diagrams: 09/13/18 15:32 09/13/18 15:32 Lab Statement: Any lab studies that have been ordered have been reviewed, and results considered in the medical decision making process. Abdominal Pain Fem Course/Dx - Course Course Of Treatment: Patient complains of epigastric pain, left side chest pain , SOB, nausea, diaphoresis, diarrhea 1 starting today at 4:15. Also complains of fall this a.m. with no subsequent injuries. Denies fever, cough, sore throat, V/D, change in urine, vaginal discharge/bleeding/pain. Denies recent CP or SOB with exertion. CP currently rated 1/10, abdominal pain graded 4/10. Medical history is none. Surgical abdominal surgical history is none. Denies smoking, EtOH and recreational drug use. Physical exam:Pain to palpation right upper quadrant and epigastrium. Abdominal exam otherwise unremarkable. Lung sounds clear to auscultation bilaterally. RRR. No CVA tenderness bilaterally. No peripheral edema bilaterally. Vital signs within normal limits. Lipase 5291. Labs otherwise unremarkable. Chest x-ray negative for acute process. CT abdomen and pelvis with contrast suggests possible coronary cystitis. Ultrasound of gallbladder positive for cholelithiasis and sludge. Negative for cholecystitis. EKG sinus rhythm. Troponin is negative. Diagnosis acute pancreatitis. Patient admitted to hospitalist. - Diagnoses Provider Diagnoses: Acute pancreatitis Discharge - Sign-Out/Discharge Documenting (check all that apply): Patient Departure - Discharge Plan Condition: Improved Disposition: ADMITTED TO [facility] - Billing Disposition and Condition Condition: IMPROVED Disposition: Admitted to [facility]
[2018-09-14] MEDS ORDERED: NS 0.9% 500 ML* 500 ML IV ONE (03:56)
[2018-09-14] MEDS ORDERED: NS 0.9% 1000 ML** 1,000 ML IV SCH (04:00)
[2018-09-14] MEDS: Acetaminophen TAB* 325 MG PO PRN ×2 (05:43→11:48)
[2018-09-14 07:54] LABS: ABS Basophils 0.1 10^3/ul (0-0.2); ABS Eosinophils 0.2 10^3/ul (0-0.6); ABS Lymphocytes 2.1 10^3/ul (1.0-4.8); ABS Monocytes 0.4 10^3/ul (0-0.8); ABS Neutrophils 1.8 10^3/ul (1.5-7.7); ABS Nucleated RBC 0 10^3/ul; Eosinophil % 3.6 %; Hematocrit 34 % (35-47); Hemoglobin 11.6 g/dl (12.0-16.0); Mean Corpuscular HGB Conc 34 g/dl (31-36); Mean Corpuscular Hemoglobin 33 pg (27-31); Mean Corpuscular Volume 96 fL (80-97); Mean Platelet Volume 6.9 fL (7.4-10.4); Nucleated Red Blood Cells % 0.1; Platelet Count 207 10^3/ul (150-450); Red Blood Count 3.58 10^6/ul (4.00-5.40); Red Cell Distribution Width 13 % (10.5-15); White Blood Count 4.6 10^3/ul (3.5-10.8)
[2018-09-14 08:12] LABS: Albumin 3.3 g/dL (3.2-5.2); Albumin/Globulin Ratio 1.6 (1-3); BUN/Creatinine Ratio 16.1 (8-20); EGFR African American 130.3 (>60); EGFR Non-African American 107.7 (>60); Globulin 2.1 g/dL (2-4); Potassium 3.8 mmol/L (3.5-5.0); Total Bilirubin 0.5 mg/dL (0.2-1.0); Total Protein 5.4 g/dL (6.4-8.9)
[2018-09-14] MEDS: Multivitamins/Minerals TAB PO SCH (10:00)
--- NOTE | 2018-09-14 17:53 | PN ---
Subjective Date of Service: 09/14/18 Interval History: HOSPITALIST PROGRESS NOTE Patient seen and examined at bedside. Care reviewed and d/w Alis MARIE. She feels much better today, wants to eat solid food. Family History: Unchanged from Admission Social History: Unchanged from Admission Past Medical History: Unchanged from Admission Objective Active Medications: Acetaminophen (Tylenol Tab*) 650 mg PO Q6H PRN PRN Reason: FEVER/PAIN Last Admin: 09/14/18 11:48 Dose: 650 mg Multivitamins/Minerals (Theragran/Minerals Tab*) 1 tab PO DAILY JAYESH Last Admin: 09/14/18 10:00 Dose: 1 tab Ondansetron HCl (Zofran Inj*) 4 mg IV Q6H PRN PRN Reason: NAUSEA Vital Signs - 8 hr 09/14/18 09/14/18 11:28 15:50 Temperature 98.2 F 97.5 F Pulse Rate 65 58 Respiratory 17 16 Rate Blood Pressure 134/74 119/50 (mmHg) O2 Sat by Pulse 99 100 Oximetry Oxygen Devices in Use Now: None Appearance: pleasant lady sitting up in bed in NAD. Eyes: No Scleral Icterus Ears/Nose/Mouth/Throat: Mucous Membranes Moist Neck: Trachea Midline Respiratory: Symmetrical Chest Expansion and Respiratory Effort, Clear to Auscultation Cardiovascular: RRR - Normal S1 and S2 Abdominal: NL Sounds; No Tenderness; No Distention Extremities: No Edema Neurological: Alert and Oriented x 3, NL Muscle Strength and Tone Result Diagrams: 09/14/18 07:28 09/14/18 07:28 Assess/Plan/Problems-Billing Assessment: Mrs Grimm is a 68yo F with PMH of macular degeneration who presented to ED with c/o abdominal pain, found to have gallstone pancreatitis. - Patient Problems (1) Gallstone pancreatitis Comment: - US and CT reviewed. - Symptoms much improved - will advance diet. - Surgery input appreciated - tentative plan for lap garrett 09/16/18 (2) DVT prophylaxis Comment: - SQ heparin (3) Full code status Status and Disposition: Change to inpatient.
--- NOTE | 2018-09-14 21:23 | CONS ---
CC: Dr. Suresh Velazquez * CONSULTATION NOTE: DATE OF CONSULT: 09/14/18 ATTENDING SURGEON: Dr. Leo Reynaga. CHIEF COMPLAINT: Abdominal pain. HISTORY OF PRESENT ILLNESS: This is a 68-year-old generally healthy female who yesterday morning began to have sudden onset of severe epigastric pain. This radiated to her chest and down to the center of the abdomen as well as to both upper quadrants right greater than left and was associated with nausea but no vomiting. She also describes some shortness of breath. At one point, she had a brief syncopal episode, which was witnessed by her . She apparently was at the side of the bed at that time and sustained no additional injury. She does reports some diarrhea during the episode. She reports a peak of pain of 10/10. At the present time, she states that her pain is 2/10, but that she is both nauseated and would like to eat. She reports some lightheadedness and a headache. She has not had any prior similar symptoms. She has not had any prior abdominal surgeries. Family history is positive for gallbladder disease in her mother. Her brother is recently from pancreatic cancer. PAST MEDICAL HISTORY: Please see the dictated history and physical. She has undergone L5-S1 diskectomy in 2009 and left knee arthroscopy in 2016. CURRENT MEDICATIONS: 1. Multivitamin. 2. Ibuprofen p.r.n. DRUG ALLERGIES: She states that PAIN MEDICATIONS in particular HYDROCODONE and OXYCODONE have caused both WET TRIMMER side effects and difficulty breathing (she states that she does tolerate low doses of Tylenol with codeine). FAMILY HISTORY: Negative for anesthesia problems, bleeding, or clotting disorder. SOCIAL HISTORY: Please see history and physical. PHYSICAL EXAM: Height 5 feet 6 inches, weight 140 pounds, temperature 98.5, blood pressure 107/61, pulse 57, respirations 17, room air saturation 97%. General: Well-nourished, well-developed female in no acute distress. She appears comfortable. Skin: Warm and dry. No suspicious rashes or lesions noted. HEENT: Unremarkable. No scleral icterus or conjunctival pallor. Neck: No masses, thyromegaly, lymphadenopathy. Heart: Regular rate and rhythm. No murmur noted. Lungs: Clear to auscultation. No wheezes. Breasts: Not examined. Abdomen: Minimally distended. Bowel sounds are present. Soft with tenderness primarily in the epigastric area and slightly in the right upper quadrant but with a negative Townsend sign. There is no rebound or guarding. There are no masses palpable or organomegaly. Genitalia and rectal not done. Back: No spinous process or CVA tenderness. Extremities: No edema. Neurological: Grossly intact. DIAGNOSTIC STUDIES/LAB DATA: White blood cell count on admission 8.7, down to 4.6 this morning; hemoglobin 12.4, down to 11.6. Chloride is minimally elevated at 112, lactic acid was normal at 0.6. Liver function tests were normal. Her lipase on admission was 5291 and this morning down to 105. She did have both CT and ultrasound done on admission. The CT showed borderline hepatomegaly with questions of gallstones. There was gallbladder wall thickening noted, normal appendix, and some generalized osteopenia. On the ultrasound, there was confirmation of gallstones and sludge with gallbladder wall thickening measured at 4 mm, a mildly dilated common bile duct at 7.6 mm, and a pancreatic duct measured at 4 mm. IMPRESSION: Gallstone pancreatitis with possible element of cholecystitis. PLAN: Continue with observation and serial labs and exams. She appears to be improving clinically. Tentative plan is for laparoscopic cholecystectomy at this point on 09/16/[address] Reynaga, who will see the patient to confirm findings and plan. OLVIN RAI [id number]/[facility] #: [id number] [facility] HOSPITALLeatha
[2018-09-14] MEDS: Heparin VIAL(*) 5000 UNITS/ML VIAL (FIVE THOUSAND) SUBCUT SCH (21:50)
[2018-09-15] MEDS: Heparin VIAL(*) 5000 UNITS/ML VIAL (FIVE THOUSAND) SUBCUT SCH ×3 (05:36→22:18)
[2018-09-15 06:09] LABS: ABS Basophils 0.1 10^3/ul (0-0.2); ABS Eosinophils 0.2 10^3/ul (0-0.6); ABS Lymphocytes 2.7 10^3/ul (1.0-4.8); ABS Monocytes 0.4 10^3/ul (0-0.8); ABS Neutrophils 2.2 10^3/ul (1.5-7.7); ABS Nucleated RBC 0 10^3/ul; Eosinophil % 3.4 %; Hematocrit 35 % (35-47); Hemoglobin 11.8 g/dl (12.0-16.0); Lymphocyte % 47.7 %; Mean Corpuscular HGB Conc 34 g/dl (31-36); Mean Corpuscular Hemoglobin 32 pg (27-31); Mean Corpuscular Volume 95 fL (80-97); Nucleated Red Blood Cells % 0.1; Platelet Count 220 10^3/ul (150-450); Red Blood Count 3.65 10^6/ul (4.00-5.40); Red Cell Distribution Width 13 % (10.5-15); White Blood Count 5.6 10^3/ul (3.5-10.8)
[2018-09-15 06:23] LABS: Albumin 3.5 g/dL (3.2-5.2); Albumin/Globulin Ratio 1.8 (1-3); Indirect Bilirubin 0.4 mg/dL (0.3-1.0); Total Bilirubin 0.5 mg/dL (0.2-1.0); Total Protein 5.5 g/dL (6.4-8.9)
[2018-09-15] MEDS: Multivitamins/Minerals TAB PO SCH (08:03)
[2018-09-15] MEDS: Acetaminophen TAB* 325 MG PO PRN ×2 (08:03→22:18)
--- NOTE | 2018-09-15 11:34 | PN ---
Progress Note - Progress Note Date of Service: 09/15/18 Note: GS pancreatitis Afeb, VS noted. Feeling better, min pain, no N/V Abd soft, trace epig tenderness. No rebound or guarding WBC, TBili, Lipase back to normal Impr: GS pancreatitis, now resolving Plan laparoscopic cholecystectomy 09/16 Disc fully, she understands and agrees.
--- NOTE | 2018-09-15 13:24 | PN ---
Subjective Date of Service: 09/15/18 Interval History: HOSPITALIST PROGRESS NOTE Patient seen and examined at bedside. Care reviewed and d/w Dejon Moore RN. She feels well today, pain is controlled. Anxious to have surgery and "get out of here". Family History: Unchanged from Admission Social History: Unchanged from Admission Past Medical History: Unchanged from Admission Objective Active Medications: Acetaminophen (Tylenol Tab*) 650 mg PO Q6H PRN PRN Reason: FEVER/PAIN Last Admin: 09/15/18 08:03 Dose: 650 mg Heparin Sodium (Porcine) (Heparin Vial(*)) 5,000 units SUBCUT Q8HR JAYESH Last Admin: 09/15/18 05:36 Dose: 5,000 units Cefazolin Sodium 2 gm/ Sodium (Chloride) 100 mls @ 200 mls/hr IVPB ONCALL ONE Stop: 09/16/18 08:29 Multivitamins/Minerals (Theragran/Minerals Tab*) 1 tab PO DAILY JAYESH Last Admin: 09/15/18 08:03 Dose: 1 tab Ondansetron HCl (Zofran Inj*) 4 mg IV Q6H PRN PRN Reason: NAUSEA Vital Signs - 8 hr 09/15/18 09/15/18 09/15/18 07:37 08:00 11:31 Temperature 98.2 F 97.6 F Pulse Rate 61 62 Respiratory 17 18 16 Rate Blood Pressure 145/69 126/68 (mmHg) O2 Sat by Pulse 98 98 Oximetry Oxygen Devices in Use Now: None Appearance: Pleasant lady sitting up in bed in NAD. Eyes: No Scleral Icterus Ears/Nose/Mouth/Throat: Mucous Membranes Moist Neck: Trachea Midline Respiratory: Symmetrical Chest Expansion and Respiratory Effort, Clear to Auscultation Cardiovascular: NL Sounds; No Murmurs; No JVD, RRR Abdominal: NL Sounds; No Tenderness; No Distention Neurological: Alert and Oriented x 3, NL Muscle Strength and Tone Result Diagrams: 09/15/18 05:43 09/14/18 07:28 Assess/Plan/Problems-Billing Assessment: Mrs Grimm is a 68yo F with PMH of macular degeneration who presented to ED with c/o abdominal pain, found to have gallstone pancreatitis. - Patient Problems (1) Gallstone pancreatitis Comment: - US and CT reviewed. - Symptoms much improved - will advance diet. - Surgery input appreciated - tentative plan for lap garrett 09/16/18. - Patient works as a supervisor housecleaner and has no CP or dyspnea with exertion. EKG reviewed and negative for acute ischemic changes. RCRI is 0 predicting a 0.4-0.5 % risk of cardiac complications. Patient is optimized for proposed procedure. (2) DVT prophylaxis Comment: - SQ heparin (3) Full code status Status and Disposition: Inpatient. Anticipate d/c after lap garrett.
[2018-09-15] MEDS ORDERED: Buffered Lidocaine 1% SYRIN* 1 ML/SYRINGE INTRADERM ONE (15:29)
--- NOTE | 2018-09-15 18:25 | PN ---
Progress Note - Progress Note Date of Service: 09/15/18 Note: S: Patient is doing well with minimal pain, tolerating low fat diet without nausea or vomiting. She is no longer experiencing diarrhea or dizziness. Has occasional headache relieved by Tylenol. Patient is walking around the floor multiple times per day and is eager to go home. O: Vital Signs - 12 hr Temp Pulse Resp BP Pulse Ox 09/15/18 15:32 97.9 F 66 15 125/65 96 09/15/18 14:37 97.6 F 71 24 150/80 96 09/15/18 11:31 97.6 F 62 16 126/68 98 09/15/18 08:00 18 09/15/18 07:37 98.2 F 61 17 145/69 98 09/15/18: WBC 5.6, Lipase 40 Physical Exam General: Walking around room comfortably in no pain or distress. Heart: Regular rate and rhythm, S1 S2, no murmur. Lungs: Clear to auscultation bilaterally without increased work of breathing. Abdomen: Soft, nondistended. Mildly tender to palpation in RUQ and epigastrium. Negative Townsend's sign. No rebound or guarding. A/P: This is a 68 year old female admitted for gallstone pancreatitis, now doing well clinically with minimal pain, lipase that has normalized and stable vital signs. Gallstone pancreatitis - Lipase is down to 40, patient is no longer nauseous and experiencing only mild pain with palpation. - Laparascopic cholecystectomy scheduled for 09/[address] Reynaga - Continue Tylenol for pain relief. Patient states that she cannot take stronger pain medication due to OUTREACH ANALYST effects but can tolerate low doses of Tylenol with codeine for severe pain - Continue low fat diet - Discharge likely tomorrow after surgery Abbie UNGER
[2018-09-16] MEDS: Lactated Ringers 1000 ML Bag* 1,000 ML IV SCH ×2 (05:53→07:50)
[2018-09-16] MEDS ORDERED: Famotidine IV* 10 MG/ML 2 ML (20 mg) IV ONE (06:00)
[2018-09-16] MEDS ORDERED: Famotidine IV* 10 MG/ML 2 ML (20 mg) ONE (07:38)
[2018-09-16] MEDS ORDERED: ceFAZolin 2 GM PREMIX in ORs 2 GM/50 ML BAG IVPB ONE (08:00)
[2018-09-16] MEDS ORDERED: ceFAZolin 2 GM in NS 100 ml - ONCE (Pharmacy Admix) IVPB ONE (08:00)
[2018-09-16] MEDS: Multivitamins/Minerals TAB PO SCH (08:18)
[2018-09-16] MEDS ORDERED: Dexamethasone IV* 4 MG/ML 1 ML (4 MG) ONE (08:24)
[2018-09-16] MEDS ORDERED: Cisatracurium* 2 MG/ML MDV 5 ML ONE (08:24)
[2018-09-16] MEDS ORDERED: Propofol* 10 MG/ML 20 ML BTL ONE ×2 (08:24→08:25)
[2018-09-16] MEDS ORDERED: fentaNYL* 50 MCG/ML 2 ML VIAL (100 MCG VIAL) ONE ×2 (08:24→10:27)
[2018-09-16] MEDS ORDERED: Ketorolac INJ* 30 MG/ML 1 ML VIAL ONE (08:24)
[2018-09-16] MEDS ORDERED: Ondansetron INJ* 2 MG/ML VIAL ONE ×2 (08:24→10:27)
[2018-09-16] MEDS ORDERED: Lidocaine 2% PF * 5 ML VIAL ONE (08:24)
[2018-09-16] MEDS ORDERED: Midazolam* 1 MG/ML 5 ML VIAL (5 MG) ONE (08:25)
[2018-09-16] MEDS ORDERED: Bupivacaine 0.25% W/EPI* 10 ML SDV ONE (08:51)
[2018-09-16] MEDS ORDERED: Ondansetron INJ* 2 MG/ML VIAL IV PRN (09:51)
[2018-09-16] MEDS ORDERED: Naloxone* 0.4 MG/ML 1 ML VIAL IV PRN (09:51)
[2018-09-16] MEDS ORDERED: Neostigmine Methylsulfate* 1 MG/ML 10 ML VIAL (1 mg/ml) ONE (09:54)
[2018-09-16] MEDS ORDERED: Glycopyrrolate IV* 0.2 MG/ML 1 ML VIAL ONE (09:54)
--- NOTE | 2018-09-16 10:03 | OP ---
Operative Report - Blank - Operative Report Date of Operation: 09/16/18 Note: Brief Operative Note Preop Dx: gallstone pancreatitis Postop Dx: same Procedure: Laparoscopic cholecystectomy Anesthesia: GET Surgeon: Juhi Vat Washer: OLVIN Craven; UTE Ivan Fluids: 1 liter LR EBL: 50 ml Specimen: gallbladder Drains: none Findings: dictated
[2018-09-16] MEDS: fentaNYL* 50 MCG/ML 2 ML VIAL (100 MCG VIAL) IV PRN ×2 (10:36→11:12)
[2018-09-16] MEDS ORDERED: Acetaminophen TAB* 325 MG ONE (11:40)
[2018-09-16] MEDS ORDERED: DiMENhydriNATE IV* 50 MG/ML VIAL ONE (11:40)
[2018-09-16] MEDS: Acetaminophen TAB* 325 MG PO PRN (11:42)
[2018-09-16 12:39] VITALS: BP 142/67
--- NOTE | 2018-09-16 13:35 | OP ---
CC: Dr. Suresh Velazquez * DATE OF OPERATION: 09/16/18 - ROOM #346 DATE OF : 50 SURGEON: Leo Reynaga MD. SPINNING LATHE OPERATOR HYDRAULIC: OLVIN Olivarez. ANESTHESIOLOGIST: Dr. Pal. ANESTHESIA: General anesthetic, local infiltration. PRE-OP DIAGNOSIS: Gallstone pancreatitis. POST-OP DIAGNOSIS: Gallstone pancreatitis. OPERATIVE PROCEDURE: Laparoscopic cholecystectomy. DESCRIPTION OF PROCEDURE: The patient was supine on the operating table. After adequate general anesthetic, compression stockings, Maya Hugger warmer, local infiltration was carried out after sterile prep and drape and a small umbilical incision was created. Blunt port cannula placed. Additional cannulae 12 mm subxiphoid and 5 mm right upper quadrant and right anterior axillary line placed with small stab wounds under direct vision. The gallbladder was dissected free and the cystic duct and cystic artery readily identified, clipped, and divided. Gallbladder was taken off the liver bed using electrocautery. Hemostasis was excellent. The gallbladder was removed through the subxiphoid port without any spillage. Operative field was irrigated with warm saline solution. Free fluid was suctioned out. Everything was in good condition. The cannulae were removed. Pneumoperitoneum was allowed to escape. Fascia of the 2 large incisions was closed with 0-Vicryl followed by 5-0 Vicryl to the skin in all cases followed by Steri-Strips. She tolerated the procedure well, was brought to Recovery in good condition. No complications. No drains. Pathologic specimen is gallbladder. Sponge and instrument counts correct. Estimated blood loss is 50 mL. [id number]/[facility] #: [id number] [facility]
--- NOTE | 2018-09-20 20:54 | DS ---
CC: Dr. Suresh Velazquez DISCHARGE SUMMARY: DATE OF ADMISSION: 09/13/18 DATE OF DISCHARGE: 09/16/18 ATTENDING SURGEON: Dr. Leo Reynaga. HOSPITAL COURSE: Please refer to admission history and physical, my surgical consult, Dr. Reynaga's p rogress note before surgery, and his operative note for details. Briefly, the patient was admitted w ith gallstone pancreatitis on 09/13/18. She was improving significantly by the next day, at which ti me, surgical consult was obtained. She continued to improve both clinically and by lab values and wa s taken to the operating room on 09/16/18, at which time, she underwent laparoscopic cholecystectomy with Dr. Reynaga. Surgery itself was unremarkable. The patient was discharged after sufficient period in the recovery room and was discharged to home in good condition. She is scheduled for followup in our office on 09/24/18. OLVIN RAI [id number]/[facility] #: [id number]
== END 2018-09-16 13:05 | disposition home or self-care (01) | DRG 419 ==
LOC: ED 13:57 → SSU 18:51 → OBSVTOIN 09-14 15:45
PROVIDERS: ADMIT Internal Medicine; ATTEND Surgery
PROC: 0FT44ZZ Resection of Gallbladder, Percutaneous Endoscopic Approach (ICD-10-PCS; principal; 2018-09-14)
DX: K85.10 Biliary acute pancreatitis without necrosis or infection (principal); R40.2412 Glasgow coma scale score 13-15, at arrival to emergency department; R16.0 Hepatomegaly, not elsewhere classified; H35.30 Unspecified macular degeneration; R51 Headache; M46.90 Unspecified inflammatory spondylopathy, site unspecified; M16.0 Bilateral primary osteoarthritis of hip; Z98.51 Tubal ligation status; Z82.49 Family history of ischemic heart disease and other diseases of the circulatory system; Z83.3 Family history of diabetes mellitus; Z88.5 Allergy status to narcotic agent; Z80.0 Family history of malignant neoplasm of digestive organs
CPT/HCPCS: 36415; 71045; 74177; 76705; 80053; 80076; 83605; 83690; 83735; 83880; 84484; 85025; 85610; 85730; 88304; 93005; 99284; A9270-GY; G0378; J0690; J1100; J1240; J1644; J1885; J2250; J2405; J2704; J2710; J3010; Q9967

== ENCOUNTER 2019-05-25 11:13 | Emergency (ER) | payer MEDICARE, BC ==
[2019-05-25 11:56] VITALS: BP 134/89
--- NOTE | 2019-05-25 12:31 | UC ---
Complaint Female HPI - HPI Summary HPI Summary: The patient is a 68-year-old female that presents here concerned that she has a urinary tract infection. She has had 5 UTIs in the past year. Because of this she is scheduled to see a urologist in the month of June. For the past couple days she has had fatigue and chills. She states that this often tips are often of the fact that she has a UTI. She denies any dysuria urgency or frequency all with. - History Of Current Complaint Chief Complaint: UCGU Stated Complaint: BURNING URINATION Time Seen by Provider: 05/25/19 12:24 Hx Obtained From: Patient Onset/Duration: Gradual Onset Timing: Constant Severity Initially: Mild Severity Currently: Mild Pain Intensity: 0 Pain Scale Used: 0-10 Numeric Character: Not Applicable Aggravating Factor(s): Nothing Alleviating Factor(s): Nothing Associated Signs And Symptoms: Negative: Fever, Back Pain, Vaginal Bleeding/ Discharge, Vaginal Discharge, Nausea, Vomiting(# Of Episodes =), Genital Swelling, Genital Blisters, Retained Foregin Body (Specify) Related Hx: Similar Episode/Dx as: - uti - Allergies/Home Medications Allergies/Adverse Reactions: Allergies Allergy/AdvReac Type Severity Reaction Status Date / Time PAIN MEDS Allergy Anaphylatic Uncoded 05/25/19 11:51 Shock PMH/Surg Hx/FS Hx/Imm Hx Previously Healthy: Yes Cardiovascular History: Hypertension - life style modification - Surgical History Surgical History: Yes Surgery Procedure, Year, and Place: 1974 BILATERAL TUBAL LIGATION, [facility] [place]. 2009 LSP BACK SURGERY, [facility] [place]. 2012 DILATION AND CURETTAGE FOR PESSARY IMPLANT, [facility]. LEFT KNEE MENISCUS REPAIR. lap garrett 2019 - Family History Known Family History: Positive: Hypertension, Diabetes, Other - Negative FMHx of breast cancer - Social History Alcohol Use: None Substance Use Type: None Smoking Status (MU): Never Smoked Tobacco Household Exposure Type: Cigarettes - Immunization History Most Recent Influenza Vaccination: 2018 Most Recent Pneumonia Vaccination: 2018 Review of Systems All Other Systems Reviewed And Are Negative: Yes Constitutional: Positive: Chills, Fatigue Skin: Positive: Negative Eyes: Positive: Negative ENT: Positive: Negative Respiratory: Positive: Negative Cardiovascular: Positive: Negative Gastrointestinal: Positive: Negative Genitourinary: Positive: Negative Motor: Positive: Negative Neurovascular: Positive: Negative Musculoskeletal: Positive: Negative Neurological: Positive: Negative Psychological: Positive: Negative Physical Exam Triage Information Reviewed: Yes Appearance: Well-Appearing, No Pain Distress, Well-Nourished Vital Signs: Initial Vital Signs Temp 99.5 F 05/25/19 11:52 Pulse 75 05/25/19 11:52 Resp 16 05/25/19 11:52 BP 134/89 05/25/19 11:52 Pulse Ox 97 05/25/19 11:52 Vital Signs Reviewed: Yes Eyes: Positive: Conjunctiva Clear ENT: Positive: Hearing grossly normal, Uvula midline. Negative: Nasal congestion, Nasal drainage, Tonsillar swelling, Tonsillar exudate, Trismus, Muffled voice, Hoarse voice Neck: Positive: Supple, Nontender, No Lymphadenopathy Respiratory: Positive: Lungs clear, Normal breath sounds, No respiratory distress, No accessory muscle use Cardiovascular: Positive: RRR, No Murmur Abdomen Description: Positive: Nontender. Negative: CVA Tenderness (R), CVA Tenderness (L) Musculoskeletal: Positive: ROM Intact, No Edema Neurological: Positive: Alert Psychological Exam: Normal Skin Exam: Normal Complaint Female Dx - Differential Dx/Diagnosis Provider Diagnosis: UTI (urinary tract infection) Discharge ED - Sign-Out/Discharge Documenting (check all that apply): Patient Departure All imaging exams completed and their final reports reviewed: No Studies - Discharge Plan Condition: Stable Disposition: HOME Prescriptions: Cephalexin CAP* [Keflex CAP*] 500 mg PO BID #14 cap Patient Education Materials: Urinary Tract Infection in Women (ED) Referrals: Suresh Velazquez MD [Primary Care Provider] - 5 Days (if not completely better) Additional Instructions: a urine culture is pending recheck for new or worsening symptom - Billing Disposition and Condition Condition: STABLE Disposition: Home
== END 2019-05-25 12:45 | disposition home or self-care (01) ==
LOC: UCEAST 11:13
DX: N39.0 Urinary tract infection, site not specified (principal); I10 Essential (primary) hypertension; Z88.6 Allergy status to analgesic agent
CPT/HCPCS: 81003; 87086; 99212; G0463

== ENCOUNTER 2019-08-24 07:04 | Day surgery (SDC) | payer MEDICARE, BC ==
[~2019-08-24 07:04] MED LIST: Acetaminophen TAB* 325 MG PO PRN; Buffered Lidocaine 1% SYRIN* 1 ML/SYRINGE INTRADERM ONE
[2019-08-24] MEDS ORDERED: Cyclopentolate 1% OPTH.SOL* 2 ML BTL ONE (09:18)
[2019-08-24] MEDS ORDERED: Phenylephrine OPHTH SOL 2.5%* 2 ML ONE (09:18)
[2019-08-24] MEDS ORDERED: Lidocaine 1% MPF ** 5 ML VIAL ONE (09:18)
[2019-08-24] MEDS ORDERED: Ketorolac 0.5% OPHTH (NF) 0.5 % 5 ML BTL ONE (09:18)
[2019-08-24] MEDS ORDERED: Lidocaine 2% w/ EPI 1:200,000* 20 ML SDV VIAL ONE (09:18)
[2019-08-24] MEDS ORDERED: acetaZOLAMIDE TAB* 250 MG ONE (09:18)
[2019-08-24] MEDS ORDERED: Neomycin/Polymy/Dex OPTH.SUSP* MAXITROL 0.1% 5 ML ONE (09:18)
[2019-08-24] MEDS ORDERED: Povidone Iodine 5% OPTH* 30 ML BTL ONE (09:18)
[2019-08-24] MEDS ORDERED: Proparacaine 0.5% OPHTH.SOL* 15 ML BTL ONE (09:19)
[2019-08-24] MEDS ORDERED: Midazolam* 1 MG/ML 2 ML VIAL (2 MG) ONE ×2 (09:19→09:52)
--- NOTE | 2019-08-24 10:27 | OP ---
DATE OF OPERATION: 08/24/2019. DATE OF : 1950. SURGEON: Marvel Dlaton M.D. PREOPERATIVE DIAGNOSIS: Cataract right eye. POSTOPERATIVE DIAGNOSIS: Cataract right eye. OPERATIVE PROCEDURE: Extracapsular cataract extraction with intraocular lens implant right eye. PROCEDURE: The patient was brought to the operating room after being given 1/2% Alcaine with epineph rine drops in the preoperative area. The eye was prepped and draped in the usual sterile fashion. S terile drape and eyelid speculum were placed. Again, topical 1/2% Alcaine with epinephrine was given . A paracentesis incision was made at the 9 o'clock position with the No.75 blade. Clear cornea inc ision 2.2 x 2.2-mm was created at the 12 o'clock position starting at the anterior limbus using the 2 .2-mm keratome. The anterior chamber was irrigated with 0.4 mL of 1% non-preservative intracameral l idocaine and filled with DisCoVisc. A capsulorrhexis was completed using the cystotome and the Utrat a forceps. Hydrodissection was performed with balanced salt solution. The lens nucleus was removed w ith the Phacoemulsification handpiece without incident. Cortex was removed with the irrigation-aspir ation handpiece. The capsular bag was re-inflated using DisCoVisc and an [id number] implant was inser romulo with the shooter. The irrigation-aspiration handpiece was used to remove all residual DisCoVisc. The eye was refilled with balanced salt solution and the wound checked and found to be watertight. Topical Maxitrol drops were given. [id number]/[facility] #: [id number]
[2019-08-24 10:59] VITALS: BP 113/72
== END 2019-08-24 10:27 | disposition home or self-care (01) ==
LOC: OREAST 07:04
PROVIDERS: ATTEND Specialist
DX: H25.811 Combined forms of age-related cataract, right eye (principal); H35.3131 Nonexudative age-related macular degeneration, bilateral, early dry stage; H16.223 Keratoconjunctivitis sicca, not specified as Sjogren's, bilateral
CPT/HCPCS: A9270-GY; J2250; V2632

== ENCOUNTER 2019-09-14 11:40 | Day surgery (SDC) | payer MEDICARE, BC ==
[~2019-09-14 11:40] MED LIST changes: +Cyclopentolate 1% OPTH.SOL* 2 ML BTL ONE; +Ketorolac 0.5% OPHTH (NF) 0.5 % 5 ML BTL ONE; +Lidocaine 1% MPF ** 5 ML VIAL ONE; +Lidocaine 2% w/ EPI 1:200,000* 20 ML SDV VIAL ONE; +Neomycin/Polymy/Dex OPTH.SUSP* MAXITROL 0.1% 5 ML ONE; +Phenylephrine OPHTH SOL 2.5%* 2 ML ONE; +Povidone Iodine 5% OPTH* 30 ML BTL ONE; +Proparacaine 0.5% OPHTH.SOL* 15 ML BTL ONE; +acetaZOLAMIDE TAB* 250 MG ONE
[2019-09-14] MEDS ORDERED: Neomycin/Polymy/Dex OPTH.SUSP* MAXITROL 0.1% 5 ML ONE (12:50)
[2019-09-14] MEDS ORDERED: Ketorolac 0.5% OPHTH (NF) 0.5 % 5 ML BTL ONE (12:50)
[2019-09-14] MEDS ORDERED: Povidone Iodine 5% OPTH* 30 ML BTL ONE (12:50)
[2019-09-14] MEDS ORDERED: acetaZOLAMIDE TAB* 250 MG ONE (12:50)
[2019-09-14] MEDS ORDERED: Lidocaine 2% w/ EPI 1:200,000* 20 ML SDV VIAL ONE (12:50)
[2019-09-14] MEDS ORDERED: Phenylephrine OPHTH SOL 2.5%* 2 ML ONE (12:50)
[2019-09-14] MEDS ORDERED: Proparacaine 0.5% OPHTH.SOL* 15 ML BTL ONE (12:50)
[2019-09-14] MEDS ORDERED: Cyclopentolate 1% OPTH.SOL* 2 ML BTL ONE (12:50)
[2019-09-14] MEDS ORDERED: Lidocaine 1% MPF ** 5 ML VIAL ONE (12:50)
[2019-09-14 14:24] VITALS: BP 131/71
--- NOTE | 2019-09-15 01:28 | OP ---
DATE OF OPERATION: 09/14/19 - [facility] DATE OF : 50 SURGEON: Marvel Dalton M.D. PREOPERATIVE DIAGNOSIS: Cataract, left. POSTOPERATIVE DIAGNOSIS: Cataract, left. OPERATIVE PROCEDURE: Extracapsular cataract extraction with IOL, intraocular lens implant left eye. DESCRIPTION OF PROCEDURE: The patient was brought to the operating room after being given 1/2% Alcaine with epinephrine drops in the preoperative area. The eye was prepped and draped in the usual sterile fashion. Sterile drape and eyelid speculum were placed. Again, topical 1/2% Alcaine with epinephrine was given. A paracentesis incision was made at the 3 o'clock position with the No.75 blade. Clear cornea incision 2.2 x 2.2-mm was created at the 6 o'clock position starting at the anterior limbus using the 2.2-mm keratome. The anterior chamber was irrigated with 0.4 mL of 1% non-preservative intracameral lidocaine and filled with DisCoVisc. A capsulorrhexis was completed using the cystotome and the Utrata forceps. Hydrodissection was performed with balanced salt solution. The lens nucleus was removed with the Phacoemulsification handpiece without incident. Cortex was removed with the irrigation-aspiration handpiece. The capsular bag was re-inflated using DisCoVisc and an [id number] implant was inserted with the shooter. The irrigation-aspiration handpiece was used to remove all residual DisCoVisc. The eye was refilled with balanced salt solution and the wound checked and found to be watertight. Topical Maxitrol drops were given. [id number]/[facility] #: [id number] [facility]
== END 2019-09-14 14:37 | disposition home or self-care (01) ==
LOC: OREAST 11:40
PROVIDERS: ATTEND Specialist
DX: H25.812 Combined forms of age-related cataract, left eye (principal); H35.3131 Nonexudative age-related macular degeneration, bilateral, early dry stage; H16.223 Keratoconjunctivitis sicca, not specified as Sjogren's, bilateral; Z96.1 Presence of intraocular lens; Z79.82 Long term (current) use of aspirin; Z88.5 Allergy status to narcotic agent
CPT/HCPCS: A9270-GY; V2632

== ENCOUNTER 2022-04-20 20:25 | Observation (INO) ==
[2022-04-20] MEDS ORDERED: NS 0.9% 1000 ml BAG 1,000 ML IV ONE (21:03)
[2022-04-20] MEDS ORDERED: Acetaminophen IV 1 GM/100ML 1,000 MG/100 ML BAG IV ONE (21:50)
[2022-04-20 23:10] LABS: ABS Lymphocytes 0.3 10^3/ul (1.0-4.8); ABS Monocytes 0.1 10^3/ul (0-0.8); ABS Neutrophils 3.6 10^3/ul (1.5-7.7); Hematocrit 39 % (35-47); Lymphocyte % 6.7 %; Mean Corpuscular HGB Conc 34 g/dL (31-36); Mean Corpuscular Hemoglobin 33 pg (27-31); Mean Corpuscular Volume 97 fL (80-97); Mean Platelet Volume 6.9 fL (7.4-10.4); Platelet Count 188 10^3/uL (150-450); Red Blood Count 4.02 10^6 /uL (3.70-4.87); Red Cell Distribution Width 14 % (10-15)
[2022-04-20 23:43] LABS: Albumin 3.8 g/dL (3.2-5.2); Albumin/Globulin Ratio 1.6 (1-3); C Reactive Protein 20.7 mg/L (<8.01); Calcium 8.7 mg/dL (8.6-10.3); Globulin 2.4 g/dL (2-4); Potassium 3.5 mmol/L (3.5-5.0); Total Bilirubin 0.4 mg/dL (0.2-1.0); Total Protein 6.2 g/dL (6.4-8.9); eGFR CKD-EPI 89.3 (>60)
[2022-04-21 00:27] LABS: Hepatitis C Antibody Negative (Negative)
[2022-04-21 01:03] LABS: Urine Appearance Cloudy; Urine Bilirubin Negative (Negative); Urine Blood 2+ (Negative); Urine Color Yellow; Urine Glucose Negative (Negative); Urine Ketones 1+ (Negative); Urine Nitrite Positive (Negative); Urine Protein Negative (Negative); Urine Specific Gravity 1.015 (1.002-1.030); Urine Urobilinogen Negative (Negative)
[2022-04-21 01:08] LABS: Urine Bacteria 1+ (Absent); Urine Red Blood Cell 3+(>10/hpf) (Absent); Urine Squamous Epithelial Cell Present (Absent); Urine White Blood Cell 3+(>20/hpf) (Absent)
[2022-04-21] MEDS ORDERED: cefTRIAXone 1 gm/50 mL D5W 1 GM/50 ML BAG IV ONE (02:00)
[2022-04-21] MEDS: Enoxaparin 40 MG/0.4 ML SYR SUBCUT SCH (08:16)
[2022-04-21 14:33] LABS: ABS Lymphocytes 0.5 10^3/ul (1.0-4.8); ABS Monocytes 0.1 10^3/ul (0-0.8); Eosinophil % 0.1 %; Hematocrit 36 % (35-47); Hemoglobin 12.2 g/dL (12.0-16.0); Lymphocyte % 18.3 %; Mean Corpuscular HGB Conc 34 g/dL (31-36); Mean Corpuscular Hemoglobin 33 pg (27-31); Mean Corpuscular Volume 95 fL (80-97); Mean Platelet Volume 6.9 fL (7.4-10.4); Nucleated Red Blood Cells % 0.3; Platelet Count 132 10^3/uL (150-450); Red Blood Count 3.76 10^6 /uL (3.70-4.87); Red Cell Distribution Width 13 % (10-15); White Blood Count 2.6 10^3/uL (3.5-10.8)
[2022-04-21 15:25] LABS: Calcium 8.1 mg/dL (8.6-10.3); Potassium 3.3 mmol/L (3.5-5.0); eGFR CKD-EPI 71.2 (>60)
[2022-04-21] MEDS ORDERED: Potassium Chlor 20 meq TAB.ER PO ONE (15:47)
[2022-04-21] MEDS: DOXYcycline 100 MG in NS 0.9% 250 ml 250 ML IVPB SCH (17:19)
[2022-04-22] MEDS: DOXYcycline 100 MG in NS 0.9% 250 ml 250 ML IVPB SCH ×2 (03:56→15:57)
[2022-04-22] MEDS ORDERED: cefTRIAXone 1 gm/50 mL D5W 1 GM/50 ML BAG IV SCH (04:00)
[2022-04-22 06:01] LABS: ABS Lymphocytes 0.9 10^3/ul (1.0-4.8); ABS Monocytes 0.2 10^3/ul (0-0.8); ABS Neutrophils 1.1 10^3/ul (1.5-7.7); Eosinophil % 0.3 %; Hematocrit 36 % (35-47); Hemoglobin 12.6 g/dL (12.0-16.0); Lymphocyte % 40.9 %; Mean Corpuscular HGB Conc 35 g/dL (31-36); Mean Corpuscular Hemoglobin 33 pg (27-31); Mean Corpuscular Volume 95 fL (80-97); Mean Platelet Volume 7.2 fL (7.4-10.4); Nucleated Red Blood Cells % 0.3; Platelet Count 114 10^3/uL (150-450); Red Cell Distribution Width 13 % (10-15); White Blood Count 2.3 10^3/uL (3.5-10.8)
[2022-04-22] MEDS: Enoxaparin 40 MG/0.4 ML SYR SUBCUT SCH (06:05)
[2022-04-22 06:26] LABS: Anion Gap 7 mmol/L (2-11); Blood Urea Nitrogen 9 mg/dL (6-24); CO2 Carbon Dioxide 26 mmol/L (22-32); Calcium 8.1 mg/dL (8.6-10.3); Chloride 107 mmol/L (101-111); Glucose 81 mg/dL (70-100); Potassium 3.8 mmol/L (3.5-5.0); Sodium 140 mmol/L (135-145); eGFR CKD-EPI 95.1 (>60)
[2022-04-22 08:41] LABS: ALT 18 U/L (7-52); AST 29 U/L (13-39); Albumin 3.2 g/dL (3.2-5.2); Albumin/Globulin Ratio 1.4 (1-3); Alkaline Phosphatase 53 U/L (35-149); Globulin 2.3 g/dL (2-4); Total Protein 5.5 g/dL (6.4-8.9)
[2022-04-22 11:24] VITALS: BP 134/76
[2022-04-23 19:06] LABS: Anaplasma phagocytophilum Positive (Negative); B. miyamotoi PCR, B Negative (Negative); Babesia divergens/MO-1 Negative (Negative); Babesia ducani Negative (Negative); Ehrlichia chaffeensis Negative (Negative); Ehrlichia ewingii/canis Negative (Negative); Ehrlichia muris eauclairensis Negative (Negative)
[2022-04-23 22:42] LABS: IgG Immunoblot Positive (Negative); IgM Immunoblot Negative (Negative)
== END 2022-04-22 17:35 | disposition home or self-care (01) ==
LOC: EDHOLD 20:25 → ED 20:25 → EDHOLD 04-21 19:06 → SSU 04-21 19:15
PROVIDERS: ADMIT Internal Medicine; ATTEND Internal Medicine